=== PATIENT | male | born 1945 | race Caucasian/White ===

== ENCOUNTER 2018-07-19 03:41 | Emergency (ER) | payer MEDICARE, OTHER ==
[2018-07-19] MEDS ORDERED: Adacel (T-DAP) 0.5 ML SYRINGE ONE (04:29)
== END 2018-07-19 04:34 | disposition home or self-care (01) ==
LOC: BURERS 03:41
DX: L76.22 Postprocedural hemorrhage of skin and subcutaneous tissue following other procedure (principal); S41.101A Unspecified open wound of right upper arm, initial encounter; E11.9 Type 2 diabetes mellitus without complications; E78.5 Hyperlipidemia, unspecified; I10 Essential (primary) hypertension; F41.9 Anxiety disorder, unspecified; F32.9 Major depressive disorder, single episode, unspecified; Z87.891 Personal history of nicotine dependence; Z79.82 Long term (current) use of aspirin; Z79.4 Long term (current) use of insulin; X58.XXXA Exposure to other specified factors, initial encounter
CPT/HCPCS: 90471; 90715

== ENCOUNTER 2018-09-11 12:32 | Emergency (ER) | payer MEDICARE, OTHER ==
[~2018-09-11 12:32] MED LIST: Iopamidol 370 76% 125 ML VIAL FS ONE
[2018-09-11 13:12] LABS: #Basophils 0.1 thou/uL (0.0-0.2); #Eosinphils 0.5 thou/uL (0.0-0.7); #Lymphocytes 2.8 thou/uL (1.20-3.40); #Monocytes 0.7 thou/uL (0.11-0.59); #Neutrophils 4.9 thou/uL (1.40-6.50); %Basophils 1.4 % (0.0-1.0); %Eosinophils 5.1 % (0.0-10.0); %Lymphocytes 31.6 % (21.0-51.0); %Monocytes 7.8 % (0.0-10.0); %Neutrophils 54.1 % (42.0-75.0); Hemoglobin 7.9 g/dL (14.0-18.0); Mean Corpuscular HGB CONC 29.3 g/dL (32.0-36.0); Mean Corpuscular Volume 75.1 fL (78.0-98.0); Mean Platelet Volume 8.6 fL (7.4-10.4); Platelet Count 252 thou/uL (130-400); RBC Distribution Width 18.4 % (11.5-14.5)
[2018-09-11 13:26] LABS: ALT (SGPT) 13 U/L (8-55); AST (SGOT) 13 U/L (5-34); Albumin 3.5 g/dL (3.4-4.8); Alkaline Phosphatase 80 U/L (40-150); Anion Gap 13 mmol/L (10-20); BUN (Urea Nitrogen) 22 mg/dL (8.4-25.7); Bilirubin, Total Less than 0.2 mg/dL (0.2-1.2); Calc. Creatinine Clearance 0 mL/min (70-130); Calcium 8.8 mg/dL (7.8-10.44); Carbon Dioxide 22 mmol/L (23-31); Chloride 111 mmol/L (98-107); Estimated GFR-MDRD 49; Globulin 3.3 g/dL (2.4-3.5); Glucose 135 mg/dL (83-110); Potassium 3.7 mmol/L (3.5-5.1); Protein, Total 6.8 g/dL (5.8-8.1); Sodium 142 mmol/L (136-145)
[2018-09-11 13:27] LABS: Hypochromia SLIGHT = 6-15 cells (100X) (0-5/hpf); MDiff Complete? YES
--- NOTE | 2018-09-11 19:57 | RAD ---
PORTABLE CHEST 09/11/18 An AP portable film at 1308 is compared with a 05/10/18 study. The heart is upper limits of normal in size and no larger than before. It may even be a bit smaller. There are no acute infiltrates, effusions, or signs of vascular congestion. A cardiac pacing device i s in place. The patient's trachea deviates slightly towards the left as it enters the thoracic inlet. IMPRESSION: No acute thoracic findings. POS: HOME
--- NOTE | 2018-09-11 20:47 | CT ---
CT ANGIO OF THE CHEST WITH CONTRAST: 09/11/[address] of the chest was performed for evaluation of shortness of breath and an elevated D-dimer. A xial slices were acquired, followed by MIP reconstructions through the pulmonary arteries. There is good opacification of the pulmonary arteries with no internal defects to suggest emboli. The re was no sign of aortic aneurysm or dissection. There are probably some calcifications in the patien t's LAD. No pericardial effusion was seen. There was no sign of mediastinal mass or adenopathy. The patient has a fair amount of subpleural fat deposition bilaterally which causes some areas of jose arent thickening. The lungs show some increased interstitial markings in the bases which is likely ch ronic in nature. No lobar consolidation or effusion was seen. An incidental finding on the study was a very large right lobe of the thyroid gland which extends sub sternally. An elective ultrasound is recommended to investigate it further. The visible portions of the upper abdomen showed no significant findings. A tiny Subcentimeter cyst in the dome of the liver on the right side is probably inconsequential. IMPRESSION: 1. No evidence of pulmonary embolism. 2. Chronic fibrotic changes, mainly in the lung bases. 3. Large right lobe of the thyroid gland. Ultrasound is recommended. POS: HOME
== END 2018-09-11 15:38 | disposition short-term general hospital (02) ==
LOC: BURERS 12:32
DX: D50.0 Iron deficiency anemia secondary to blood loss (chronic) (principal); K50.90 Crohn's disease, unspecified, without complications; R79.89 Other specified abnormal findings of blood chemistry; K92.2 Gastrointestinal hemorrhage, unspecified; F41.9 Anxiety disorder, unspecified; F32.9 Major depressive disorder, single episode, unspecified; I10 Essential (primary) hypertension; E78.5 Hyperlipidemia, unspecified; E11.9 Type 2 diabetes mellitus without complications; Z87.891 Personal history of nicotine dependence; Z79.82 Long term (current) use of aspirin; Z79.899 Other long term (current) drug therapy; Z79.4 Long term (current) use of insulin
CPT/HCPCS: 36415; 71045; 71275; 80053; 83880; 84484; 85025; 85379; 93005; 94760; Q9967

== ENCOUNTER 2018-09-19 20:29 | Emergency (ER) | payer MEDICARE ==
[2018-09-19 21:28] LABS: Hemoglobin 9.6 g/dL (14.0-18.0); Mean Corpuscular HGB CONC 29.5 g/dL (32.0-36.0); Mean Corpuscular Hemoglobin 23.7 pg (27.0-31.0); Mean Corpuscular Volume 80.6 fL (78.0-98.0); Mean Platelet Volume 11.1 fL (7.4-10.4); Platelet Count 136 thou/uL (130-400); RBC Distribution Width 20.2 % (11.5-14.5); Red Blood Cell (RBC) Count 4.04 mill/uL (4.70-6.10); White Blood Cell (WBC) Count 7.3 thou/uL (4.8-10.8)
[2018-09-19 21:34] LABS: ALT (SGPT) 13 U/L (8-55); AST (SGOT) 10 U/L (5-34); Albumin 3.5 g/dL (3.4-4.8); Alkaline Phosphatase 66 U/L (40-150); Anion Gap 16 mmol/L (10-20); BUN (Urea Nitrogen) 19 mg/dL (8.4-25.7); Bilirubin, Total 0.3 mg/dL (0.2-1.2); Calc. Creatinine Clearance 0 mL/min (70-130); Calcium 8.5 mg/dL (7.8-10.44); Carbon Dioxide 19 mmol/L (23-31); Chloride 108 mmol/L (98-107); Estimated GFR-MDRD 43; Glucose 443 mg/dL (83-110); Potassium 3.9 mmol/L (3.5-5.1); Protein, Total 6.5 g/dL (5.8-8.1); Sodium 139 mmol/L (136-145)
[2018-09-19 21:45] LABS: #Basophils 0.1 thou/uL (0.0-0.2); #Eosinphils 0.3 thou/uL (0.0-0.7); #Lymphocytes 2.1 thou/uL (1.20-3.40); #Monocytes 0.7 thou/uL (0.11-0.59); #Neutrophils 4.4 thou/uL (1.40-6.50); %Basophils 1.2 % (0.0-1.0); %Eosinophils 4.1 % (0.0-10.0); %Lymphocytes 26.6 % (21.0-51.0); %Monocytes 9.8 % (0.0-10.0); %Neutrophils 58.2 % (42.0-75.0); Anisocytosis SLIGHT = 6-15 cells (100X) (0-5/hpf); Hypochromia SLIGHT = 6-15 cells (100X) (0-5/hpf); MDiff Complete? YES; Platelet Morphology Comment Appears Adequate
== END 2018-09-19 22:20 | disposition short-term general hospital (02) ==
LOC: BURERS 20:29
DX: D64.9 Anemia, unspecified (principal); R60.0 Localized edema; E11.65 Type 2 diabetes mellitus with hyperglycemia; E78.5 Hyperlipidemia, unspecified; F41.9 Anxiety disorder, unspecified; F32.9 Major depressive disorder, single episode, unspecified; Z87.891 Personal history of nicotine dependence; Z79.899 Other long term (current) drug therapy; Z79.82 Long term (current) use of aspirin; Z79.4 Long term (current) use of insulin
CPT/HCPCS: 36415; 80053; 85025; 85379; 99284

== ENCOUNTER 2018-12-03 10:25 | Emergency (ER) | payer MEDICARE | END 2018-12-03 10:52 | disposition home or self-care (01) | LOC: BURERS 10:25 | DX: T78.40XA Allergy, unspecified, initial encounter (principal); F41.9 Anxiety disorder, unspecified; F32.9 Major depressive disorder, single episode, unspecified; E78.5 Hyperlipidemia, unspecified; I10 Essential (primary) hypertension; D64.9 Anemia, unspecified; Z87.891 Personal history of nicotine dependence; Z79.899 Other long term (current) drug therapy; Z79.4 Long term (current) use of insulin; Z79.82 Long term (current) use of aspirin | CPT/HCPCS: 99283 ==